=== PATIENT | female | born 2005 | race Two or more races ===

== ENCOUNTER 2023-09-21 06:53 | Inpatient (IN) ==
[2023-09-21] MEDS: LR 1,000 ML IV 1,000 ML IV ONE ×2 (07:04→07:18)
[2023-09-21] MEDS: ANCEF VIAL 1 GRAM IVP ONE (07:04)
[2023-09-21] MEDS: NOZIN NASAL SANITIZER TP ONE (07:16)
[2023-09-21] MEDS: REGLAN INJ 10 MG VIAL ONE (07:36)
[2023-09-21] MEDS: PEPCID 20 MG VIAL ONE (07:39)
[2023-09-21 07:48] LABS: BASOPHILS % (AUTO) 0.2 % (0.2-1.0); EOSINOPHILS # (AUTO) 0.1 x10^3/uL (0.0-0.2); EOSINOPHILS % (AUTO) 1.4 % (0.9-2.9); HEMATOCRIT 26.9 % (36.0-47.0); HEMOGLOBIN 8.4 g/dL (12.0-16.0); LYMPHOCYTES # (AUTO) 2.7 X10^3/uL (1.3-2.9); MEAN CORPUSCULAR HEMOGLOBIN 21.2 pg (27.0-34.0); MEAN CORPUSCULAR HGB CONC 31.4 g/dL (33.0-35.0); MEAN CORPUSCULAR VOLUME 67.6 fL (80.0-100.0); MEAN PLATELET VOLUME 10.7 fL (7.4-11.0); MONOCYTES # (AUTO) 0.4 x10^3/uL (0.3-0.8); MONOCYTES % (AUTO) 5.1 % (0.0-13.0); NEUTROPHILS # (AUTO) 4.9 x10^3/uL (2.2-4.8); NEUTROPHILS % (AUTO) 60.3 % (42.0-75.0); PLATELET COUNT 214 X10^3/uL (150.0-450.0); RED BLOOD COUNT 3.98 X10^6/uL (3.5-5.4); RED CELL DISTRIBUTION WIDTH 19.5 % (11.6-16.5); WHITE BLOOD COUNT 8.2 X10^3/uL (3.6-10.0)
[2023-09-21 07:58] LABS: ALANINE AMINOTRANSFERASE 14 Units/L (12-78); ALBUMIN 2.4 g/dL (3.4-5.0); ALKALINE PHOSPHATASE 214 Units/L (45-150); ASPARTATE AMINO TRANSFERASE 26 Units/L (15-37); BLOOD UREA NITROGEN 8 mg/dL (7-18); CALCIUM 8.7 mg/dL (8.5-10.1); CARBON DIOXIDE 24.7 mmol/L (21-32); CHLORIDE 105 mmol/L (98-107); CREATININE 0.64 mg/dL (0.55-1.02); GLUCOSE 80 mg/dL (65-99); POTASSIUM 3.8 mmol/L (3.5-5.1); SODIUM 139 mmol/L (136-145); TOTAL PROTEIN 6.7 g/dL (6.4-8.2); eGFR NON BLACK RACES > 60 (>60)
[2023-09-21] MEDS: ANCEF VIAL 1 GRAM ONE (08:05)
[2023-09-21] MEDS: NS 100 ML IV 100 ML ONE (08:05)
[2023-09-21] MEDS: DILAUDID INJ ONE (08:05)
[2023-09-21] MEDS: PRECEDEX INJ VIAL ONE (08:05)
[2023-09-21] MEDS: MARCAINE SPINAL ONE (08:05)
[2023-09-21] MEDS: XYLOCAINE 2 % (PLAIN) ONE (08:05)
[2023-09-21 08:13] LABS: ANISOCYTOSIS SLIGHT; HYPOCHROMASIA 2+; MICROCYTOSIS 1+; OVALOCYTES 1+; PLATELET MORPHOLOGY COMMENT NORMAL (NORMAL)
[2023-09-21] MEDS: ZOFRAN INJ 4 MG VIAL ONE ×2 (08:33→09:22)
[2023-09-21] MEDS: PITOCIN ONE (08:35)
[2023-09-21] MEDS: NEO-SYNEPHRINE INJ ONE (08:38)
[2023-09-21] MEDS ORDERED: BENADRYL INJ 50 MG VIAL IVP PRN ×3 (09:10→10:26)
[2023-09-21] MEDS ORDERED: DILAUDID INJ IVP PRN (09:10)
[2023-09-21] MEDS ORDERED: ZOFRAN INJ 4 MG VIAL IVP PRN ×2 (09:10→09:11)
[2023-09-21] MEDS ORDERED: REGLAN INJ 10 MG VIAL IVP PRN ×2 (09:10→09:11)
[2023-09-21] MEDS ORDERED: PERCOCET TAB 5/325 MG PO PRN (09:11)
[2023-09-21] MEDS ORDERED: TORADOL 30 MG VIAL IVP PRN (09:11)
[2023-09-21] MEDS ORDERED: NARCAN INJ IVP PRN ×3 (09:11→10:26)
[2023-09-21] MEDS: NS 100 ML IV 100 ML with VENOFER 400 MG IV NR (10:15)
[2023-09-21] MEDS ORDERED: MOTRIN TAB 800 MG PO PRN (10:26)
[2023-09-21] MEDS ORDERED: MYLICON TAB 80 MG CHEW PO PRN (10:26)
[2023-09-21] MEDS: ZOFRAN INJ 4 MG VIAL IVP SCH (11:36)
[2023-09-21] MEDS: REGLAN INJ 10 MG VIAL IVP PRN (13:59)
[2023-09-21] MEDS: D5 1/2 NS 1,000 ML 1,000 ML with PITOCIN 20 UNITS IV SCH (14:50)
[2023-09-22 05:36] LABS: HEMATOCRIT 22.1 % (36.0-47.0)
[2023-09-22 05:50] LABS: HEMOGLOBIN 6.9 g/dL (12.0-16.0)
[2023-09-22] MEDS: TORADOL 30 MG VIAL IVP PRN (07:32)
[2023-09-22] MEDS ORDERED: PERCOCET TAB 5/325 MG PO PRN (09:00)
[2023-09-22] MEDS: COLACE CAP 100 MG PO SCH (09:10)
[2023-09-22] MEDS: PRENATAL PLUS PO SCH (09:10)
[2023-09-22] MEDS: BACTROBAN TOPICAL OINT TOP SCH (13:37)
[2023-09-22] MEDS: FERROUS GLUCONATE PO SCH (16:39)
[2023-09-22] MEDS ORDERED: NS 500 ML IV 500 ML IV ONE (20:13)
[2023-09-23 00:11] LABS: HEMATOCRIT 31.4 % (36.0-47.0)
[2023-09-23 00:12] LABS: HEMOGLOBIN 9.8 g/dL (12.0-16.0)
[2023-09-23 08:03] VITALS: RESP 18
[2023-09-23 13:15] VITALS: BP 123/75; PULSE 86; TEMP 98.2; O2SAT 96
== END 2023-09-23 13:15 | disposition home or self-care (01) | DRG 788 ==
LOC: LD 06:53 → MED/SURG 10:38
PROVIDERS: ADMIT Obstetrics & Gynecology Obstetrics; ATTEND Obstetrics & Gynecology Obstetrics